=== PATIENT | female | born 1965 | race Caucasian/White ===

== ENCOUNTER 2019-11-22 11:27 | Emergency (ER) | payer SELFPAY ==
[2019-11-22 11:32] VITALS: BP 141/91; PULSE 77; RESP 17; TEMP 36.6; O2SAT 98; BMI 23.8
[2019-11-22 12:19] LABS: Bacteria 0 SEEN /hpf (None Seen); Mucous, Urine 0 SEEN /hpf (<or=2+); Red Blood Cells-Urine 0 SEEN /hpf (0-5); White Blood Cells 0 SEEN /hpf (0-5)
--- NOTE | 2019-11-22 12:19 | ED.VIS.GEN ---
History of Present Illness Chief Complaint: Complaint Informant: Patient Narrative: Patient is a 54-year-old female with a past medical history of hypertension who presents to the emergency department for low back pain, suprapubic pressure and urinary frequency. She states he typically gets a UTI once a year. She has had bad kidney infections before in the past. She denies having any fevers but has had some chills. She was started on doxycycline 3 days ago but this has not been giving her any relief. She does not think she has had any hematuria. Denies dysuria. No nausea/vomiting. No change in bowel habits. She tried drinking cranberry juice for this. She believes that she has having a yeast infection now that she is started on the doxycycline. Has had a very mild vaginal discharge now. Past Medical History - Allergies and Home Meds Allergies/Adverse Reactions: Allergies Penicillins [PCN] Allergy (Verified 11/22/19 11:29) SLOWED HR AND DIFFICUTY BREATHING Sulfa (Sulfonamide Antibiotics) Allergy (Verified 11/22/19 11:32) TACHYCARDIA, DIZZINESS, NAUSEA Primary Care Physician: Care Physician,No Primary [Primary Care Provider] - Prior records reviewed: Yes Past Medical History: - Surgical History: - - sections Smoking Status: Current every day smoker Review of Systems All systems negative except as indicated General: Reports: Chills. Denies: Fever, Sweats Eyes: Denies: Visual changes - bilaterally, Diplopia ENT: Denies: Rhinorrhea, Sore throat Cardiovascular: Denies: Chest pain, Palpitations Respiratory: Denies: Dyspnea, Cough, Dyspnea on exertion Gastrointestinal: Reports: Abdominal pain. Denies: Nausea, Vomiting, Diarrhea, Melena, Hematochezia Genitourinary: Reports: Frequency. Denies: Dysuria, Hematuria Musculoskeletal: Reports: Back pain. Denies: Extremity Pain Skin: Denies: Rash, Wounds Neurological: Denies: Headache, Weakness, Numbness Physical Exam Vital Signs/Narrative: Vital Signs Temp Pulse Resp BP Pulse Ox 11/22/19 11:32 97.9 F 77 17 141/91 H 98 Inital Vital Signs reviewed: Yes General: Well nourished, Well developed, No Acute Distress Head: Normocephalic, Atraumatic Eyes: Perrl, EOMI ENT: Moist mucous membranes, No rhinorrhea Neck: Supple, Nontender Cardiovascular: Regular rate, Regular rhythm, No murmurs Respiratory: No distress, CTA bilaterally, Chest nontender Abdomen: Soft, Nondistended, Normal bowel sounds, Tender - Suprapubic. No pain over McBurney's point. Negative Sheffield sign. Back: Normal Inspection, CVA tenderness - Mild, bilateral Extremities: Nontender, No edema Skin: Normal color, No rash Neurological: Alert, Oriented x3, Cranial nerves II-XII grossly intact, Normal Strength, Normal Sensation Psychological: Normal affect, Normal Mood Diagnostic/Tx/Re-eval - Medical Decision Making Patient presents to the emerge department for urinary frequency, suprapubic discomfort and low back pain. Upon arrival to the emergency department vital signs within normal limits. She states she has gone into renal failure before so we will check basic lab work along with urinalysis. I do not believe she is appropriately treated with the doxycycline for UTI. She has developed a rash for this and stopped the treatment. Lab work did not reveal an elevated kidney function. Urine does not show any evidence of infection at this time but she is very symptomatic so we will treat as she did not complete the full course of the doxy and this is not really appropriate therapy for this. She is also given Pyridium for her symptoms which she states has helped before. She is given a dose of fluconazole for the yeast infection. Warning signs and symptoms for which to return to the ED are reviewed with her. Social work did see the patient and helped with finding a PCP as she currently does not have one. She is going to get insurance next week. She understands and is agreeable this plan. Will discharge home in stable condition. ED Disposition - Plan for ED Patient: Disposition: Home or Assisted Living Diagnosis: Dysuria, Yeast infection Instructions: ED CYSTITIS Female Adult, Vaginal Infection: Yeast (Candidiasis) Prescriptions: Fluconazole 150 mg PO X1 #1 tab Transmission Status: Pending to [id number] Nitrofurantoin Macrocrystals [Macrobid] 100 mg PO Q12 #10 cap Transmission Status: Pending to [id number] Phenazopyridine HCl [Pyridium] 200 mg PO BID PRN PRN #10 tab PRN Reason: Pain Transmission Status: Pending to [id number] Referrals: Care Physician,No Primary [Primary Care Provider] - 3-5 Days
[2019-11-22 12:21] LABS: Color, Urine Yellow (Yellow); Glucose, Dipstick Normal (Normal); Ketone-Dipstick Negative (Negative); Leukocyte Esterase-Dipstick Negative /ul (Negative); Nitrite-Dipstick Negative (Negative); Occult Blood-Urine Negative /ul (Negative); Protein-Dipstick Negative (Negative); Urine Bilirubin Dipstick Negative (Negative); Urine Clarity Sl. Cloudy (Clear); Urine Urobilinogen Normal (Normal); Urine pH 6.5 (5.0 - 8.0)
[2019-11-22 12:23] LABS: Internal QC Validated? YES +Cl - CLEAR BKGD; Pregnancy, Urine Negative Negative
[2019-11-22 12:45] LABS: Squamous Epithelial Cells - UA 0-5 SEEN /hpf (5-10)
[2019-11-22 12:52] LABS: Absolute Lymphocyte Count 1.62 X10^3/uL (0.83-4.51); Absolute Neutrophil Count 2.8 X10^3/uL (2.0-7.7); Basophil# 0.03 X10^3/uL; Basophil% 0.6 % (0-1); Eosinophil# 0.17 X10^3/uL; Eosinophils% 3.3 % (0-5); Hematocrit 42.1 % (37-47); Hemoglobin 13.8 g/dL (12.0-15.0); Lymphocyte # 1.62 X10^3/ul (4.0); Lymphocyte % 31.6 % (19-41); Mean Corp Hgb Conc 32.8 g/dL (32-36); Mean Corpuscular Hgb 28.9 pg (27.0-32.0); Mean Corpuscular Volume 88.3 fL (81-99); Monocyte# 0.46 X10^3/uL; NRBC Flagged by Analyzer 0 % (0-5); Neutrophil # 2.84 X10^3/uL (2.7-7.7); Neutrophil % 55.3 % (47-70); Platelet Count 209 K/mm3 (150-450); RBC Distribution Width CV 12.8 % (11.6-14.6); RBC Distribution Width SD 41.7 fl (35.1-43.9); Red Blood Count 4.77 M/mm3 (4.2-5.4); White Blood Count 5.1 K/mm3 (4.4-11.0)
[2019-11-22 13:05] LABS: Anion Gap 4 (5-15); BUN 12 mg/dL (7-18); BUN/Creat Ratio 16.3 RATIO (10-20); Calcium,Total 9.4 mg/dL (8.5-10.1); Chloride 111 mmol/L (98-107); Creatinine, Serum 0.74 mg/dL (0.55-1.02); EST Glomerular Filtration Rate 88 mL/min (>60); Est Glom Filt Rate - Afr Amer 106 mL/min (>60); Estimated Creatinine Clearance 79.11 ml/min; Glucose 80 mg/dL (74-106); Sodium Level 141 mmol/L (136-145)
--- NOTE | 2019-11-22 13:13 | CM.ED ---
Social Work Consult: No PCP/Self Pay Informant: Self Referral Met with patient in room. Introduced self and social media campaign manager role. Patient agreeable to speaking with this social media campaign manager. Patient confirms to not have a PCP or active insurance. Patient reports to have recently moved to [place], [place] about 6 months ago. Patient currently works at [employer] and will have insurance starting 2019. Patient reports to be able to afford ER visit on this day. Patient states to have moved to [place] to be closer to family. Patient was living in [place] prior. Patient denies any community needs/concerns. Patient open to this social media campaign manager providing patient with list of PCP's in the area. This social media campaign manager encouraging patient to establish with a PCP and voicing understanding as to patient current insurance status. Patient pleasant and open to resources. No further needs identified. Dai VENEGAS, YENY
[2019-11-22 14:13] VITALS: RESP 16
--- NOTE | 2019-11-22 14:14 | ED.RN ---
REVIEWED D/C INSTRUCTIONS AND FOLLOW UP CARE WITH PT. PT AMBULATED OUT OF ED, GAIT STEADY. SKIN P/W/D, RESP EVEN AND UNLABORED, NO DISTRESS NOTED.
== END 2019-11-22 14:14 | disposition home or self-care (01) ==
PROVIDERS: Emergency Provider Emergency Medicine
DX: R30.0 Dysuria (principal); B37.9 Candidiasis, unspecified; F17.200 Nicotine dependence, unspecified, uncomplicated
CPT/HCPCS: 80048; 81001; 81025; 85025; 87086; 99282

== ENCOUNTER → 2020-02-12 15:37 | Outpatient (CLI) | payer OTHER, SELFPAY ==
[2020-02-11 14:45] VITALS: BMI 22.6
[2020-02-12 15:41] LABS: Bacteria 0 SEEN /hpf (None Seen); Mucous, Urine 0 SEEN /hpf (<or=2+); Red Blood Cells-Urine 0 SEEN /hpf (0-5); White Blood Cells 0 SEEN /hpf (0-5)
[2020-02-12 16:07] LABS: Color, Urine Straw (Yellow); Glucose, Dipstick Normal (Normal); Ketone-Dipstick Negative (Negative); Leukocyte Esterase-Dipstick Negative /ul (Negative); Nitrite-Dipstick Negative (Negative); Occult Blood-Urine Negative /ul (Negative); Protein-Dipstick Negative (Negative); Urine Bilirubin Dipstick Negative (Negative); Urine Clarity Clear (Clear); Urine Urobilinogen Normal (Normal)
[2020-02-12 16:13] LABS: Squamous Epithelial Cells - UA 0-5 SEEN /hpf (5-10)
== END ==
PROVIDERS: Visit Provider Physician Assistant Surgical
DX: N30.00 Acute cystitis without hematuria (principal)
CPT/HCPCS: 81001; 87086

== ENCOUNTER → 2020-07-06 15:39 | Outpatient (CLI) | payer OTHER, SELFPAY ==
[2020-06-29 13:55] VITALS: BMI 23.8
[2020-07-06 18:21] LABS: BUN 12 mg/dL (7-18); EST Glomerular Filtration Rate 70 mL/min (>60); Est Glom Filt Rate - Afr Amer 85 mL/min (>60)
== END ==
PROVIDERS: Referring Provider Otolaryngology; Visit Provider Otolaryngology
DX: D49.0 Neoplasm of unspecified behavior of digestive system (principal)
CPT/HCPCS: 36415; 82565; 84520

== ENCOUNTER → 2020-07-15 08:22 | Outpatient (CLI) | payer OTHER, SELFPAY ==
[2020-06-29 13:55] VITALS: BMI 23.8
--- NOTE | 2020-07-15 08:25 | CT_ITS ---
STUDY: CT SOFT TISSUE NECK WITH CONTRAST REASON FOR EXAM: Female, 54 years old. Neoplasm of unspecified behavior of digestive system RADIATION DOSAGE (If Supplied By Facility): CTDIvol = ( 11.85 ) mGy, DLP = ( 352.44 ) mGycm TECHNIQUE: The patient was scanned in a multi-detector CT scanner. High resolution transaxial imaging was performed following intravenous administration of IV 100mL Isovue-300. Sagittal and coronal images were reconstructed. Individualized dose optimization techniques were used for this CT. COMPARISON: None. FINDINGS: Normal bilateral parotid glands. Normal bilateral sales floor team member spaces. Normal bilateral parapharyngeal spaces. Normal bilateral carotid spaces. Normal bilateral sublingual and submandibular glands and spaces. Normal visualized nasopharynx. Normal retropharyngeal space. Normal perivertebral space. Normal visualized bilateral faucial tonsils. The visualized tongue, tongue base and oropharynx are normal. The visualized cervical lymph nodes (levels I-) are within normal size limits, and maintain normal morphology. There is no demonstrated solid or cystic mass lesion. There is no abnormal contrast enhancement. Normal epiglottis, bilateral vallecula and hypopharynx. The pre-epiglottic and paraglottic adipose spaces are normal. Normal visualized bilateral piriform sinuses, aryepiglottic folds, vocal cords, and arytenoid-cricoid articulations. Normal subglottic trachea. Normal bilateral lobes of the thyroid gland. Normal visualized pulmonary apices. Normal visualized paranasal sinuses. There is multilevel degenerative changes of the cervical spine. CT/Soft Tissue Neck WITH Contrast IMPRESSION: Normal enhanced CT examination of the soft tissues of the neck. Electronically Signed: Gertrude Carrasquillo MD at 16:50 EDT , Service support ,
== END ==
PROVIDERS: Referring Provider Otolaryngology; Visit Provider Otolaryngology
DX: D49.0 Neoplasm of unspecified behavior of digestive system (principal)
CPT/HCPCS: 70491; Q9967

== ENCOUNTER 2020-08-07 11:09 | Day surgery (SDC) | payer OTHER, SELFPAY ==
[2020-06-29 13:55] VITALS: BMI 23.8
--- NOTE | 2020-08-07 | LES_PTH ---
PATIENT: NIYA ROMERO [place] [facility] [place][id number] AGE/SX: 54/F ROOM: RE08/07/[address]: Dr. Khalif Goins MD : [id number] BED: DIS: 08/07/2020 SPEC #: [id number] RECD: 08/07/20 14:16 STATUS: DESHAWN REChepe #: [id number] BALJINDER: 08/07/20 00:[address]: Khalif Goins DEPT: SURGICAL PATHOLOGY RECD BY: Maci Vallejo ENTERED: 08/07/20 14:31 SP TYPE: Lesion OTHR DR: No Primary Care Phys Tissues: Floor of mouth, NOS Procedures: Frozen Section (charge) Special Stain Group I Surgery Specimen Level IV AFB Stain (control) GMS Stain (control) HEADER OPERATION: Excision floor mouth lesion, frozen section PRE-OP DIAGNOSIS: Lesion left floor of mouth TISSUE SUBMITTED: Floor of mouth lesion, FS FROZEN SECTION DIAGNOSIS Floor of mouth lesion, biopsy: Mild epithelial hyperplasia. Focal acute inflammation. AM:gabrielle 08/07/2020 MICROSCOPIC DIAGNOSIS Floor of mouth lesion, biopsy: Acute and chronic inflammation of the subepithelial tissue with granulation. No evidence of malignancy. Negative for acid-fast bacilli and fungal organisms. See comment. AM:gabrielle 08/10/2020 COMMENT AFB and GMS stains with matched controls were used in the evaluation of this case. MICROSCOPIC DESCRIPTION Slides are reviewed. GROSS DESCRIPTION Received fresh for frozen section consultation labeled with the patient's name is a specimen designated lesion left floor of mouth. The specimen consists of an irregular fragment of pink-trejo soft tissue measuring 1 x 0.2 x 0.2 cm. The specimen is totally submitted in one block for frozen section consultation. / AM:gabrielle 08/07/20 TC:2 CPT: 32073, 77774, 45313 x2
[2020-08-07 12:12] VITALS: BP 133/89; PULSE 70; RESP 16; TEMP 37.1; O2SAT 98; BMI 22.2
[2020-08-07] MEDS: Lactated Ringers 1,000 ML 100 ML IV ×2 (12:30→14:30)
[2020-08-07] MEDS: Oxymetazoline 0.05% 1 SPRAY SPRAY.BTL 15 SPRAY (14:00)
[2020-08-07] MEDS: Lidocaine 4% 50 ML Bottle (14:00)
--- NOTE | 2020-08-07 14:35 | PCM.OPRPT ---
Problems Associated Problem List Diagnoses (1) Neoplasm of unspecified behavior of digestive system: Report of Operation Date of Procedure: 08/07/20 Pre-Operative Diagnosis: Lesion left floor of mouth, left otalgia Post-Operative Diagnosis: Same Surgery/Procedure Performed:: Direct laryngoscopy, biopsy of left floor of mouth lesion Description of Surgical Findings:: Erinn is a 54-year-old female who presents with a lesion along the left floor of mouth and left otalgia. Given the associated ear pain biopsy for further evaluation was advised and she is agreeable to proceed. The risks, alternatives, potential complications, and benefits were discussed at length and any questions answered to the patient and/or caregiver's satisfaction. Witnessed informed consent was obtained in the office, and the patient and/or caregiver was agreeable to proceed. Procedure went as follows: The patient was identified in the preoperative holding and brought to the operating room, placed under general anesthesia, and intubated. When appropriate anesthesia was obtained, the head of bed was rotated and the patient prepped and draped in usual sterile fashion. A moistened gauze was then placed to protect the upper gums and the Dedo laryngoscope then introduced. Direct laryngoscopy was then carried out. The lateral posterior pharyngeal wall mucosa, tonsillar fossa, vallecula, piriforms, and epiglottis were noted to be normal in appearance. The true and false vocal folds were then evaluated and found to be normal in appearance. There is noted to be a tonsillar stone within the deep crypt within the left tonsil but no other abnormal lesion was noted. Laryngoscope and gauze was then removed. Attention was then turned to the floor mouth lesion and the examination was then turned to the floor of mouth and there was noted to be a area of thickened epithelium with central depression arising along the floor mouth on the left side in the gingival lingual sulcus. Using pledgets soaked in a 50-50 mixture of oxymetazoline and 4% topical lidocaine the area was then topicalized. Using a large cup forceps the area was then biopsied with the specimen sent for pathologic evaluation. This showed some thickening and fibrosis with reactive changes but no suggestion of malignancy. The wound was then closed with a single interrupted 4-0 Vicryl suture. No significant bleeding was encountered and the patient was then returned to anesthesia she is wide Maxivate without complication having tolerated seizure well. Surgeon: Khalif Goins Type of Anesthesia: General Anesthesiologist: Antoine Lam Specimen's removed: left floor of mouth biopsy Drains: none Estimated Blood Loss (mL): 5 mL Fluids Replaced: 1000 mL Grafts/Implants Used: none Complications none Admit VTE Documentation VTE Present on Admission: No VTE Mechan Device Prophylaxis: SCD's VTE Pharm Prophylaxis ordered?: No Reason prophylaxis not ordered:: Procedure Not Indicated
[2020-08-07 14:44] VITALS: BP 133/89; BP 144/91; PULSE 82; RESP 12; TEMP 36.6; O2SAT 95
--- NOTE | 2020-08-07 14:44 | PCM.DC ---
Discharge Instructions Diet Discharge Diet: No restrictions Activity Discharge Activity: Return to Normal Activity Dressing / Incision Call your doctor if your incision/area has: Sudden Increased Bleeding and Increased Pain/ Swelling Call your doctor if you observe: Fever of 101 or Higher and Uncontrolled pain Follow Up Care Please Follow Up With: Khalif Goins MD When: 2 weeks Test Results: Test results from this visit will be discussed in further detail at your follow-up appointment, if applicable. Discharge Plan Admission Primary Reason for Your Visit: Left floor ot mouth lesion Attending Provider: Khalif Goins Primary Care Provider: Care Physician,No Primary Discharge Orders/Prescriptions Prescriptions: New acetaminophen 500 mg Tablet 500 mg PO Q4H PRN PRN (Reason: Pain Score 1-5/10) Qty: 0 RF: 0 Continued ibuprofen 800 mg Tablet 800 mg PO Q6H PRN (Reason: Pain) RF: 0 ascorbic acid (vitamin C) [Vitamin C] 500 mg Tablet,Chewable 500 mg PO DAILY RF: 0 Referrals / Follow Up: Care Physician,No Primary [Primary Care Provider] - Disposition Discharge Orders: Discharge Patient (Routine); Ordered 08/07/20 Ordered By: Dr. Khalif Goins
[2020-08-07 15:00] VITALS: BP 133/89; BP 152/92; PULSE 62; RESP 14; O2SAT 98
[2020-08-07 15:04] VITALS: BP 133/89; BP 149/98; PULSE 59; RESP 14; O2SAT 100
[2020-08-07 15:10] VITALS: BP 133/89; BP 154/95; PULSE 58; RESP 14; TEMP 36.7; O2SAT 99
[2020-08-07] MEDS: Acetaminophen 500 MG Tablet PO (15:37)
[2020-08-07] MEDS: Ibuprofen 200 MG Tablet 400 MG PO (15:37)
[2020-08-07 16:08] VITALS: BP 133/89; BP 144/82; PULSE 59; RESP 16; TEMP 36.8; O2SAT 100
--- NOTE | 2020-08-07 16:38 | SUR.PHASEII ---
Patient discussed with nurse that the patient does not feel that her lesion was completely removed. This nurse voiced patient's concern to Dr. Goins over telephone. Patient is upset and thought that the whole lesion that the patient showed me in her mouth was going to be removed. Patient has a follow up appointment with Dr. Goins in 1 week.
== END 2020-08-07 16:30 ==
LOC: SDC 11:11 → AC 11:14
PROVIDERS: Referring Provider Otolaryngology; Visit Provider Otolaryngology
PROC: (CPT 31535; principal; 2020-08-07 12:30)
PROC: 0CJS8ZZ Inspection of Larynx, Via Natural or Artificial Opening Endoscopic (ICD-10-PCS; CPT 31575; 2020-08-07 12:30)
DX: K13.29 Other disturbances of oral epithelium, including tongue (principal); H92.02 Otalgia, left ear; M19.90 Unspecified osteoarthritis, unspecified site; E11.9 Type 2 diabetes mellitus without complications; I10 Essential (primary) hypertension; F17.290 Nicotine dependence, other tobacco product, uncomplicated; Z86.19 Personal history of other infectious and parasitic diseases
CPT/HCPCS: 31535; 87426; 88305; 88307; 88312; 88331; J7120; J2405

== ENCOUNTER 2020-08-11 10:59 | Emergency (ER) | payer OTHER, SELFPAY ==
[2020-08-11 11:00] VITALS: BP 158/91; PULSE 78; RESP 16; TEMP 36.7; O2SAT 99; BMI 21.9
--- NOTE | 2020-08-11 11:40 | CT_ITS ---
STUDY: CT SOFT TISSUE NECK WITH CONTRAST REASON FOR EXAM: Female, 54 years old. Dysphasia and left-sided neck pain. Recent left neck biopsy. RADIATION DOSAGE (If Supplied By Facility): CTDIvol = ( 11.66 ) mGy, DLP = ( 334.93 ) mGycm TECHNIQUE: The patient was scanned in a multi-detector CT scanner. High resolution transaxial imaging was performed following intravenous administration of IV 75mL Isovue-370. Sagittal and coronal images were reconstructed. Individualized dose optimization techniques were used for this CT. COMPARISON: Comparison is made with prior examination dated 07/15/2020. FINDINGS: Normal bilateral parotid glands. Normal bilateral oven press tender spaces. Normal bilateral parapharyngeal spaces. Normal bilateral carotid spaces. Normal bilateral sublingual and submandibular glands and spaces. Normal visualized nasopharynx. Normal retropharyngeal space. Normal perivertebral space. Normal visualized bilateral faucial tonsils. The visualized tongue, tongue base and oropharynx are normal. The visualized cervical lymph nodes (levels I-) are within normal size limits, and maintain normal morphology. There is no demonstrated solid or cystic mass lesion. There is no abnormal contrast enhancement. Normal epiglottis, bilateral vallecula and hypopharynx. The pre-epiglottic and paraglottic adipose spaces are normal. Normal visualized bilateral piriform sinuses, aryepiglottic folds, vocal cords, and arytenoid-cricoid articulations. Normal subglottic trachea. Normal bilateral lobes of the thyroid gland. Normal visualized pulmonary apices. Normal visualized paranasal sinuses. There is multilevel degenerative changes of the cervical spine. CT/Soft Tissue Neck WITH Contrast IMPRESSION: Stable examination. No acute abnormality is seen. Electronically Signed: Elijah Mcneal MD at 13:13 EDT , Service support ,
--- NOTE | 2020-08-11 11:42 | EX.ED.DYSGE1 ---
HPI History of Present Illness Chief Complaint: Other, Pain/Inj Onset/Context/Timing Onset: Month(s) (2) Context: Gradual Onset Timing: Continuous Quality: Aching Location: Throat, left worse than right Worsened by: Swallowing Relieved by: Hot tea Narrative Narrative: Patient presents with pain in her neck and mouth that has been constant for the past 2 months. Patient states she initially went to an urgent care and was started on antibiotics for it. Patient states that she had a CT scan of her head neck 1 month ago which was normal. Patient states she has been seen by Dr. Goins from ENT. Patient had a biopsy 4 days ago but she does not know the results of that. Patient states she feels like the pain is getting worse. Patient states she called Dr. Goins' office and was referred to the emergency department. [facility] Medical History (Updated 08/11/20 @ 13:[address] Khalif Andino, ) Alcohol use Anxiety Arthritis Back pain Blackout Depression Facial trauma Gingival enlargement Hepatitis History of edema History of fibromyalgia History of mitral valve prolapse Hx of echocardiogram Hx of hypoglycemia Injury of head and neck Marijuana use Smoker Substance abuse Wears dentures Wears glasses Home Medications ascorbic acid (vitamin C) [Vitamin C] 500 mg PO DAILY 08/04/20 [History Last Taken Unknown] ibuprofen 800 mg PO Q6H PRN 08/04/20 [History Last Taken Unknown] acetaminophen 500 mg PO Q4H PRN PRN #0 tab 08/07/20 [Rx Last Taken Unknown] Allergy/AdvReac Type Severity Reaction Status Date / Time Penicillins [PCN] Allergy SLOWED HR Verified 08/11/20 11:03 AND DIFFICUTY BREATHING Sulfa (Sulfonamide Allergy TACHYCARDIA, Verified 08/11/20 11:03 Antibiotics) DIZZINESS, NAUSEA Surgical History (Updated 08/11/20 @ 12:04 by Erlinda La) History of History of cardiac catheterization History of oral surgery Hx of dilation and curettage Social History Smoking Status: Current every day smoker tobacco type: cigarettes ROS ROS ED Constitutional Constitutional ED: Denies chills or fever(s) Eyes Eyes: Denies blurry vision or change in vision ENT ENT ED: Reports sore throat; Denies rhinorrhea Cardiovascular Cardiovascular: Denies chest pain or palpitations Respiratory/Chest Respiratory/Chest: Denies cough or dyspnea Gastrointestinal Gastrointestinal: Reports nausea; Denies vomiting Genitourinary Genitourinary ED: Denies dysuria or hematuria Musculoskeletal Musculoskeletal: Reports neck pain; Denies back pain Integumentary Denies abscess or rash Neurologic Neurologic: Denies headache(s) or weakness Allergic/Immunologic Allergic/Immunologic ED: Denies mouth swelling or urticaria EXAM Physical Exam Const Vital Signs: 08/11/20 11:00 08/11/20 12:05 08/11/20 13:42 Temperature 98.0 F 97.2 F L Temperature Source Temporal Temporal Pulse Rate 78 57 L Respiratory Rate 16 16 Respiratory Effort Normal Non-Labored Respiratory Pattern Normal Blood Pressure 158/91 H 159/99 H Blood Pressure Mean 113 119 Pulse Ox 99 100 Oxygen Delivery Method Room Air Room Air 08/11/20 13:44 Temperature 97.2 F L Temperature Source Temporal Pulse Rate 57 L Respiratory Rate 16 Respiratory Effort Respiratory Pattern Blood Pressure 159/99 H Blood Pressure Mean 119 Pulse Ox 100 Oxygen Delivery Method Room Air Positive well nourished and well developed General Appearance ED: well developed HEENT Reports moist mucous membranes HEENT Narrative: Oropharynx is clear. There is a soft tissue mass under the tongue on the left. It is smooth. There is some mild tenderness. Airway is patent. Neck supple and no JVD Neck Narrative: There is some mild tenderness over the anterior cervical lymph nodes bilaterally. There is some mild lymphadenopathy. Trachea is midline. General: tenderness and other Resp normal respiratory effort and clear to auscultation bilaterally Cardio regular rate and regular rhythm GI normal to inspection, nondistended, normoactive bowel sounds and non-tender Palpation: soft Neuro oriented x3, CN's II-XII intact bilaterally and no sensory deficits noted Sensorium / Orientation: alert Motor Exam: strength 5/5 throughout Psych mental status grossly normal MDM MDM MDM Narrative Medical decision making narrative: CBC and basic metabolic profile were obtained and were within normal limits. CT scan of the soft tissue neck was obtained to rule out complications from her recent surgery. CT scan of the soft tissue neck did not show any acute abnormalities. This was interpreted by the radiologist and reviewed by myself. Patient was advised of her findings. Patient was instructed to follow-up with Dr. Gonis in 2 days as scheduled. Patient was instructed to take Tylenol or ibuprofen as needed for pain. Patient was instructed return if worse in any way. Patient understood and was agreeable with the plan. All questions were answered. Lab Data Attestation: I reviewed the patient's lab results. Labs: Laboratory Results - last 24 hr 08/11/20 08/11/20 12:15 12:15 WBC 7.1 RBC 4.52 Hgb 12.9 Hct 40.4 MCV 89.4 MCH 28.5 MCHC 31.9 L RDW Std Deviation 41.4 RDW Coeff of Geovanna 12.5 Plt Count 179 MPV 11.5 Immature Gran % (Auto) 0.100 Neut % (Auto) 59.2 Lymph % (Auto) 32.2 Bartholomew % (Auto) 6.5 Eos % (Auto) 1.4 Baso % (Auto) 0.6 Absolute Neuts (auto) 4.2 Absolute Lymphs (auto) 2.27 Nucleated RBC % 0 Sodium 143 Potassium 3.6 Chloride 110 H Carbon Dioxide 27.0 Anion Gap 6 BUN 14 Creatinine 0.94 Estim Creat Clear Calc 62.28 Est GFR (MDRD) Af Amer 80 Est GFR (MDRD) Non-Af 66 BUN/Creatinine Ratio 15.0 Glucose 72 L Calcium 9.0 Radiography Diagnostic Testing: Radiology Impression Soft Tissue Neck CT 08/11/20 11:40 IMPRESSION: Stable examination. No acute abnormality is seen. Electronically Signed: Elijah Mcneal MD at 13:13 EDT , Service support , Discharge Plan Triage Chief Complaint: Other, Pain/Inj Other Complaint: Edema ED Provider: Khalif Andino Dx/Rx/DC Orders Clinical Impression: Neoplasm of unspecified behavior of digestive system Instructions: ED Tumor, Uncertain Cause Prescriptions: No Action ibuprofen 800 mg Tablet 800 mg PO Q6H PRN (Reason: Pain) RF: 0 ascorbic acid (vitamin C) [Vitamin C] 500 mg Tablet,Chewable 500 mg PO DAILY RF: 0 acetaminophen 500 mg Tablet 500 mg PO Q4H PRN PRN (Reason: Pain Score 1-5/10) Qty: 0 RF: 0 Primary Care Provider: Care Physician,No Primary Referrals: Khalif Goins MD [STAFF PHYSICIAN] - Keep Teodora appointment Care Physician,No Primary [Primary Care Provider] - Disposition Disposition: Home, self care
[2020-08-11 12:30] LABS: Absolute Lymphocyte Count 2.27 X10^3/uL (0.83-4.51); Absolute Neutrophil Count 4.2 X10^3/uL (2.0-7.7); Basophil# 0.04 X10^3/uL; Basophil% 0.6 % (0-1); Eosinophils% 1.4 % (0-5); Hematocrit 40.4 % (37-47); Hemoglobin 12.9 g/dL (12.0-15.0); Lymphocyte # 2.27 X10^3/ul (0.83-4.51); Lymphocyte % 32.2 % (19-41); Mean Corp Hgb Conc 31.9 g/dL (32-36); Mean Corpuscular Hgb 28.5 pg (27.0-32.0); Mean Corpuscular Volume 89.4 fL (81-99); Mean Platelet Vol. 11.5 fl (6.2-12.0); Monocyte# 0.46 X10^3/uL; Monocyte% 6.5 % (0-10); NRBC Flagged by Analyzer 0 % (0-5); Neutrophil # 4.18 X10^3/uL (2.7-7.7); Neutrophil % 59.2 % (47-70); Platelet Count 179 K/mm3 (150-450); RBC Distribution Width CV 12.5 % (11.6-14.6); RBC Distribution Width SD 41.4 fl (35.1-43.9); Red Blood Count 4.52 M/mm3 (4.2-5.4); White Blood Count 7.1 K/mm3 (4.4-11.0)
[2020-08-11 12:42] LABS: Anion Gap 6 (5-15); BUN 14 mg/dL (7-18); Chloride 110 mmol/L (98-107); Creatinine, Serum 0.94 mg/dL (0.55-1.02); EST Glomerular Filtration Rate 66 mL/min (>60); Est Glom Filt Rate - Afr Amer 80 mL/min (>60); Estimated Creatinine Clearance 62.28 ml/min; Glucose 72 mg/dL (74-106); Potassium 3.6 mmol/L (3.5-5.1); Sodium Level 143 mmol/L (136-145)
[2020-08-11 13:42] VITALS: BP 159/99; PULSE 57; RESP 16; TEMP 36.2; O2SAT 100
[2020-08-11 13:44] VITALS: BP 159/99; PULSE 57; RESP 16; TEMP 36.2; O2SAT 100
== END 2020-08-11 14:10 | disposition home or self-care (01) ==
PROVIDERS: Emergency Provider Emergency Medicine
DX: D49.0 Neoplasm of unspecified behavior of digestive system (principal); F17.210 Nicotine dependence, cigarettes, uncomplicated; Z79.899 Other long term (current) drug therapy
CPT/HCPCS: 70491; 80048; 85025; 99284; Q9967; A4216

== ENCOUNTER → 2020-08-27 16:24 | Outpatient (CLI) | payer OTHER, SELFPAY ==
[2020-08-11 11:00] VITALS: BMI 21.9
--- NOTE | 2020-08-27 16:30 | RAD_ITS ---
STUDY: X-RAY - CERVICAL SPINE REASON FOR EXAM: Female, 54 years old. NECK PAIN TECHNIQUE: 3 view(s) of the cervical spine were obtained. COMPARISON: None FINDINGS: Normal anterior atlantoaxial articulation. Normal odontoid process. There is straightening of the normal cervical lordosis. There is multi-level endplate spondylosis. There is multi-level degenerative disc disease with multilevel disc space narrowing. Normal visualized intervertebral neuroforamina. The soft tissue structures are unremarkable. RAD/Cerv Spine 2 or 3 Views IMPRESSION: Loss of the normal cervical lordosis. Disc space narrowing and spondylosis at the C4-C5, C5-C6 and C6-C7 levels. Electronically Signed: Elijah Mcneal MD at 12:50 EDT , Service support ,
== END ==
PROVIDERS: Referring Provider Anesthesiology Pain Medicine; Visit Provider Anesthesiology Pain Medicine
DX: M54.2 Cervicalgia (principal)
CPT/HCPCS: 72040

== ENCOUNTER → 2020-11-18 18:08 | Outpatient (CLI) | payer OTHER, SELFPAY | PROVIDERS: Visit Provider Physician Assistant | DX: R30.0 Dysuria (principal) | CPT/HCPCS: 87086 ==

== ENCOUNTER → 2021-12-04 | Outpatient (CLI) | payer OTHER, SELFPAY ==
[2021-12-04 18:52] LABS: Mucous, Urine 0 SEEN /hpf (<or=2+); Red Blood Cells-Urine 0 SEEN /hpf (0-5)
[2021-12-04 19:18] LABS: Color, Urine Straw (Yellow); Glucose, Dipstick Normal (Normal); Ketone-Dipstick Negative (Negative); Leukocyte Esterase-Dipstick 25 /ul (Negative); Nitrite-Dipstick Negative (Negative); Occult Blood-Urine Negative /ul (Negative); Protein-Dipstick Negative (Negative); Specific Gravity, Urine 1.005 (1.002-1.030); Urine Bilirubin Dipstick Negative (Negative); Urine Clarity Clear (Clear); Urine Urobilinogen Normal (Normal)
[2021-12-04 19:32] LABS: White Blood Cells 0-5 SEEN /hpf (0-5)
[2021-12-04 19:33] LABS: Bacteria RARE /hpf (None Seen); Squamous Epithelial Cells - UA 0-5 SEEN /hpf (5-10)
== END | disposition home or self-care (01) ==
PROVIDERS: Visit Provider Nurse Practitioner Family
DX: N39.0 Urinary tract infection, site not specified (principal)
CPT/HCPCS: 81001; 87086